=== PATIENT | female | born 1970 | race Caucasian/White ===

== ENCOUNTER 2017-08-16 23:03 | Emergency (ER) | payer OTHER ==
[~2017-08-16] VITALS: Ht 162.6 cm; Wt 65.3 kg
[2017-08-16 23:18] VITALS: BP 143/64
--- NOTE | 2017-08-17 00:10 | NUR ---
47 Y/O F W/C/O PAIN TO L CALF R/T SPIDER BITE. PT STATES SHE SAW THE SPIDER AND KILL IT. SHE SAID IT WAS A BLACK SPIDER BUT SHE DIDNT BRING IT WITH HER. DENIES ANY SOB, NO S/S OF DISTRESS NOTED, SITE SLIGHTLY RED, AND WARM. NO S/S OF IMPAIRED CIRCULATION NOTED. ER MADE AWARE.
[2017-08-17] MEDS ORDERED: methylPREDNISolone SS 125 MG in WATER STERILE 2 ML IM ONE (00:25)
[2017-08-17] MEDS ORDERED: diphenhydrAMINE 50 MG/ML VIAL IM ONE (00:25)
--- NOTE | 2017-08-17 00:33 | NUR ---
PT TAKEN TO BED 4
[2017-08-17 01:27] VITALS: BP 143/64
--- NOTE | 2017-08-17 01:27 | NUR ---
Patient discharged with v/s stable. Written and verbal after care instructions given and explained. Patient alert, oriented and verbalized understanding of instructions. Ambulatory with steady gait. All questions addressed prior to discharge. ID band removed. Patient advised to follow up with PMD. Rx of ATARAX 25MG, PREDNISONE 20MG given. Patient educated on indication of medication including possible reaction and side effects. Opportunity to ask questions provided and answered.
== END 2017-08-17 01:27 | disposition home or self-care (01) ==
LOC: MED 23:03
DX: S80.862A Insect bite (nonvenomous), left lower leg, initial encounter (principal); W57.XXXA Bitten or stung by nonvenomous insect and other nonvenomous arthropods, initial encounter; Y93.89 Activity, other specified; Y92.89 Other specified places as the place of occurrence of the external cause; Y99.8 Other external cause status
CPT/HCPCS: 96372; 99284; J1200; J2930

== ENCOUNTER 2017-09-15 07:42 | Emergency (ER) | payer OTHER ==
[~2017-09-15] VITALS: Ht 160 cm; Wt 64.1 kg
[2017-09-15 07:50] VITALS: BP 133/73
--- NOTE | 2017-09-15 07:53 | NUR ---
Patient ambulated to bed 12. RN evaluating patient at bedside.
--- NOTE | 2017-09-15 07:56 | NUR ---
PT AMBULATES TO BED 12
[2017-09-15] MEDS ORDERED: ALBUTEROL 0.083% 2.5 MG/3 ML NEBU INH ONE (08:05)
[2017-09-15] MEDS ORDERED: KETOROLAC 30 MG/ML VIAL IM ONE (08:05)
[2017-09-15] MEDS ORDERED: ONDANSETRON 4 MG ODT PO ONE (08:05)
--- NOTE | 2017-09-15 08:22 | NUR ---
RT AT BEDSIDE
[2017-09-15] MEDS ORDERED: OSELTAMIVIR PHOSPHATE 75 MG CAP PO SCH (09:00)
[2017-09-15 11:06] VITALS: BP 95/54
--- NOTE | 2017-09-15 11:06 | NUR ---
Patient discharged with v/s stable. Written and verbal after care instructions given and explained. Patient alert, oriented and verbalized understanding of instructions. Ambulatory with steady gait. All questions addressed prior to discharge. ID band removed. Patient advised to follow up with PMD. Rx of PHENERGAN W CODEINE/TAMIFLU given. Patient educated on indication of medication including possible reaction and side effects. Opportunity to ask questions provided and answered.
== END 2017-09-15 11:06 | disposition home or self-care (01) ==
LOC: MED 07:42
DX: J11.1 Influenza due to unidentified influenza virus with other respiratory manifestations (principal)
CPT/HCPCS: 94640; 96372; 99283; J1885; J7613; S0119

== ENCOUNTER 2018-08-23 19:25 | Emergency (ER) | payer OTHER ==
[~2018-08-23] VITALS: Ht 162.6 cm; Wt 67.1 kg
[2018-08-23 19:32] VITALS: BP 158/105
[2018-08-24 00:04] VITALS: BP 158/105
== END 2018-08-24 00:04 | disposition home or self-care (01) ==
LOC: MED 19:25
DX: N39.0 Urinary tract infection, site not specified (principal); J44.9 Chronic obstructive pulmonary disease, unspecified; E11.9 Type 2 diabetes mellitus without complications; F03.90 Unspecified dementia, unspecified severity, without behavioral disturbance, psychotic disturbance, mood disturbance, and anxiety; I10 Essential (primary) hypertension; Z86.73 Personal history of transient ischemic attack (TIA), and cerebral infarction without residual deficits; K21.9 Gastro-esophageal reflux disease without esophagitis; Z95.1 Presence of aortocoronary bypass graft
CPT/HCPCS: 81002; 81025; 99283